=== PATIENT | female | born 1955 | race Caucasian/White ===

== ENCOUNTER 2018-02-03 10:49 | Outpatient (RCR) | payer OTHER ==
[2018-02-04] MEDS ORDERED: CALC500T6 PO (14:12)
[2018-02-04] MEDS ORDERED: FLUT1DIS29 IH (14:12)
[2018-02-04] MEDS ORDERED: IRBE150T7 PO (14:12)
[2018-02-04] MEDS ORDERED: EZET1TAB86 PO (14:12)
[2018-02-04] MEDS ORDERED: CHOL200074 PO (14:12)
[2018-02-04] MEDS ORDERED: MONT10TA4 PO (14:12)
[2018-02-04] MEDS ORDERED: MULT-1124 PO (14:12)
[2018-02-04] MEDS ORDERED: TAMO20TA24 PO (14:12)
[2018-02-04] MEDS ORDERED: ASPI81TA94 PO (14:14)
[2018-02-04] MEDS ORDERED: ALB18R INH (14:14)
[2018-02-04] MEDS ORDERED: ALEN70TA43 PO (14:15)
== END 2018-02-10 09:22 | disposition home or self-care (01) ==
LOC: RAON 10:49
PROVIDERS: ATTEND Radiology Radiation Oncology
DX: C50.812 Malignant neoplasm of overlapping sites of left female breast (principal); Z17.0 Estrogen receptor positive status [ER+]; Z79.810 Long term (current) use of selective estrogen receptor modulators (SERMs); Z92.3 Personal history of irradiation; Z92.21 Personal history of antineoplastic chemotherapy; E78.00 Pure hypercholesterolemia, unspecified; I10 Essential (primary) hypertension
CPT/HCPCS: 99212

== ENCOUNTER 2018-11-03 13:36 | Outpatient (RCR) | payer OTHER ==
[~2018-11-03 13:36] MED LIST: ALB18R INH; ALEN70TA43 PO; ASPI81TA94 PO; CALC500T6 PO; CHOL200074 PO; EZET1TAB86 PO; FLUT1DIS29 IH; IRBE150T7 PO; MONT10TA4 PO; MULT-1124 PO; TAMO20TA24 PO
[2018-11-03 14:11] VITALS: BP 153/91
--- NOTE | 2018-11-04 14:37 | ONCOLOGY FOLLOW UP NOTE ---
EVENT DATE: November 03, 2018 CHIEF COMPLAINT/REASON FOR VISIT Annual radiation therapy evaluation post-treatment, known history of stage IIA breast carcinoma. Patient opting for bilateral mastectomy. She received postoperative adjuvant TC-based chemotherapy and also required postoperative radiation therapy to the regional lymph nodes. The latter was completed under the direction of Dr. Ceron on May 05, 2015. 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 HISTORY OF PRESENT ILLNESS This is my first visit for Alecia, who has now moved to [place]. When she was first treated with surgery and radiation therapy, patient was living in [place] and she elected to have her therapy in [place]. On reviewing the clinical record and the patient's history, she was diagnosed in 2013 with a 1.7 cm invasive ductal carcinoma with lymphovascular invasion and a 4 mm positive tumor in her sentinel lymph node. The tumor was strongly ER receptor positive at 95%, OH 5%, HER2 equivocal at 2+. FISH/HER2 study was negative. Patient elected to have bilateral mastectomy. She had left mastectomy with immediate reconstruction by . She also had a right mastectomy and immediate reconstruction by . Unfortunately, she developed an infection on the right side and ultimately the implant was removed and she elected not to have any additional surgery. On her second surgery, she had no residual cancer cells on the left side. Patient went on to receive TC-based chemotherapy in January 2015 under the direction of Dr. Sabillon. Her oncology care is now taken care of by Dr. Mustapha Sheth, who she sees in [place] q. six months with lab work. She remains on Tamoxifen and is tolerating this well with no significant adverse effects. Patient denies any new headaches or bone bone. She occasionally has sensitivity on the left side medially and asks that I would check that area out today on clinical exam. She has not had any radiographic studies in the last year that I could see and when I asked if she would like me to schedule the radiographic studies, she said "No, not at this time." MEDICATIONS 1. Tamoxifen 20 mg a day. 2. Ventolin inhaler p.r.n. 3. Vitamin D3. 4. Vytorin 10/40 mg q. day. 5. MDI. 6. Advair Diskus 5500/50 q. b.i.d. 7. Aspirin 81 mg q. day. 8. Calcium with vitamin D. 9. Singulair 10 mg q. day. PAST MEDICAL HISTORY 1. Left sided breast carcinoma. 2. Asthma. 3. Hypertension. PAST SURGICAL HISTORY 1. , 1990. 2. Right and left breast surgeries, 2013 to 2014 (listed above). 3. Left shoulder reconstruction, 2007. 4. Right wrist surgery, March 1996. SOCIAL HISTORY Father had COPD, hypertension, prostate cancer. Mother has osteoporosis and COPD. One sister had uterine carcinoma at age 54. is retired at this time and the patient is living in [place] to be closer to family. REVIEW OF SYSTEMS Negative with exception of a few months back she had some pain in her legs at night but that has now resolved. PHYSICAL EXAMINATION GENERAL: Pleasant 62-year old female of medium build. VITAL SIGNS: BP 153/91, pulse 87, respirations 16, weight 137, O2 sat 91% on room air. NECK; No peripheral adenopathy. LUNGS: Clear bilaterally. CHEST: Right chest wall inspection reveals no suspicious findings, post- mastectomy scar with poor healing centrally due to infection, unfortunately. BREAST: Left breast exam reveals a reconstruction left breast mound. No sensation of lower half of the breast. There is some thickening but no dominant mass effect on my exam medially. Lateral aspect of the exam reveals no suspicious findings. ABDOMEN: Soft. No gross organomegaly, mass or tenderness. NEUROLOGIC: Grossly intact. IMPRESSION This is a 62-year old female with intermediate risk stage II left sided breast carcinoma back in 2013. She underwent surgery, chemotherapy and radiation therapy. She is now four years remote from her cancer diagnosis. She will continue on the Tamoxifen and see Dr. Garcia q. six months with lab work. I will see her again in a year, which will be her five year interval. If her clinical exam is normal at that time, I will potentially release her from the clinic at that juncture. I did offer to have the patient undergo a mammogram and tomosynthesis, which I have found to be useful for patients with implants. She declined the imaging at this time so we will follow her closely. She is to notify us if she detects any significant changes as well. All questions were answered to her satisfaction over a 40 minute followup visit today. [facility]MA
== END 2019-01-08 12:51 | disposition home or self-care (01) ==
LOC: RAON 13:36
PROVIDERS: ATTEND Radiology Radiation Oncology
DX: C50.912 Malignant neoplasm of unspecified site of left female breast (principal); Z17.0 Estrogen receptor positive status [ER+]; Z79.810 Long term (current) use of selective estrogen receptor modulators (SERMs); Z92.21 Personal history of antineoplastic chemotherapy; Z92.3 Personal history of irradiation
CPT/HCPCS: 99212